=== PATIENT | female | born 1965 | race Caucasian/White ===

== ENCOUNTER 2020-12-02 09:41 | Outpatient (REF) | payer MEDICARE, MEDICAID, SELFPAY ==
--- NOTE | ~2020-12-02 | MR_ITS ---
EXAMINATION: MR ABDOMEN WITHOUT AND WITH CONTRAST CLINICAL INFORMATION: Followup left adrenal lesion. COMPARISON: Previous CT scans of the abdomen and pelvis most recent November 2019 going back to October 2017 TECHNIQUE: MR abdomen was performed without and with use of 8.5 mL intravenous Gadavist gadolinium contrast. Postcontrast images are performed in multiphase dynamic sequences. Imaging was performed in 3 planes. FINDINGS: LUNG BASES: The visualized lung bases are unremarkable. LIVER, GALLBLADDER, AND BILIARY TREE: The liver is normal in size, smooth in contour, and normal in signal. No focal hepatic lesion or biliary ductal dilatation is present. The gallbladder is unremarkable with no evidence of gallbladder wall thickening, or obvious pericholecystic inflammatory changes. PANCREAS: Unremarkable. SPLEEN: Normal. ADRENAL GLANDS: There is a 1 x 1.5 cm lesion in the left adrenal gland. This is low signal on T1- and T2-weighted sequences and does not demonstrate evidence of enhancement. It loses signal on [id number] sequences and fat saturation sequences suggestive of a fatty lesion. Demonstrates mild enhancement. This is similar to previous exams going back to October 2017 and likely represents a benign lipid-rich adenoma. The right adrenal gland is normal-appearing. KIDNEYS AND URETERS: The kidneys are normal in size, shape, and enhance symmetrically. No hydronephrosis. No perinephric stranding. GASTROINTESTINAL TRACT: No bowel obstruction. No ascites or fluid collection. ABDOMINAL WALL: No significant hernia is appreciated. LYMPH NODES: No lymphadenopathy. VASCULAR: There is evidence of atherosclerotic disease. No aneurysm is seen. OSSEOUS STRUCTURES: Marrow signal normal. There are degenerative changes of the spine. MR/MR abdomen wo/w con IMPRESSION: Stable 1 x 1.5 cm fat-containing left adrenal lesion probably representing a benign adenoma.
[2020-12-02 10:33] LABS: Anion Gap 11 (12-20); Blood Urea Nitrogen 17 mg/dL (9-16); Calcium 9.4 mg/dL (8.4-10.2); Carbon Dioxide 30 mmol/L (22-29); Chloride 106 mmol/L (96-108); Estimated Glomerular Filt Rate > 60; Glucose Random 120 mg/dL (60-115); Potassium 4.9 mmol/L (3.3-5.1); Sodium 142 mmol/L (135-145)
[2020-12-03 18:37] LABS: Adrenocorticotropic Hormone 7 pg/mL (6-50)
[2020-12-05 14:36] LABS: Catecholamine Frac, Total 667 pg/mL
[2020-12-06 10:41] LABS: Metanephrine, Free 36 pg/mL (<=57); Normetanephrines, Free 109 pg/mL (<=148); Total Metanephrine, Free 145 pg/mL (<=205)
[2020-12-07 15:20] LABS: Renin 0.97 ng/mL/h (0.25-5.82)
== END 2020-12-02 09:42 | disposition home or self-care (01) ==
LOC: HO.MRI 09:41
PROVIDERS: PCP Nurse Practitioner Primary Care; Visit Provider Internal Medicine
DX: E27.9 Disorder of adrenal gland, unspecified (principal)
CPT/HCPCS: 36415; 74183; 80048; 82024; 82088; 82384; 83835; 84244; A9585

== ENCOUNTER → 2021-01-06 07:55 | Outpatient (BNVA) | payer MEDICARE, MEDICAID, SELFPAY | PROVIDERS: PCP Nurse Practitioner Primary Care; Visit Provider Internal Medicine | CPT/HCPCS: Q3014 ==

== ENCOUNTER 2021-01-31 08:23 | Outpatient (REF) | payer MEDICARE, MEDICAID, SELFPAY ==
[2021-02-04 08:21] LABS: Adrenocorticotropic Hormone <5 pg/mL (6-50)
[2021-02-05 10:36] LABS: Dexamethasone 234 ng/dL
== END 2021-01-31 08:24 | disposition home or self-care (01) ==
LOC: HO.LAB 08:23
PROVIDERS: PCP Nurse Practitioner Primary Care; Visit Provider Internal Medicine
DX: D35.02 Benign neoplasm of left adrenal gland (principal)
CPT/HCPCS: 36415; 80299; 82024; 82533

== ENCOUNTER 2021-12-31 13:08 | Outpatient (REF) | payer OTHER, SELFPAY ==
--- NOTE | ~2021-12-31 | MR_ITS ---
EXAMINATION: MR ABDOMEN WITHOUT AND WITH CONTRAST CLINICAL INFORMATION: Benign neoplasm of the left adrenal gland. COMPARISON: 12/02/2020 TECHNIQUE: MR abdomen was performed without and with use of 8 mL intravenous Gadavist gadolinium contrast. Postcontrast images are performed in multiphase dynamic sequences. Imaging was performed in 3 planes. FINDINGS: LUNG BASES: The visualized lung bases are unremarkable. LIVER, GALLBLADDER, AND BILIARY TREE: The liver is normal in size, smooth in contour, and normal in signal. No focal hepatic lesion or biliary ductal dilatation is present. The gallbladder is unremarkable with no evidence of gallbladder wall thickening, or obvious pericholecystic inflammatory changes. PANCREAS: Unremarkable. SPLEEN: Normal. ADRENAL GLANDS: Normal appearing right adrenal gland. Redemonstration of the left adrenal gland nodule measuring 1.3 x 1.1 cm. This is low in signal on T2-weighted imaging. This is isointense on T1-weighted imaging without significant enhancement. There is signal dropout on out of phase imaging, consistent with a lipid rich adenoma. No significant change from prior. KIDNEYS AND URETERS: The kidneys are normal in size, shape, and enhance symmetrically. No hydronephrosis. No perinephric stranding. GASTROINTESTINAL TRACT: No bowel obstruction. No ascites or fluid collection. ABDOMINAL WALL: No significant hernia is appreciated. LYMPH NODES: No lymphadenopathy. VASCULAR: Unremarkable. OSSEOUS STRUCTURES: Marrow signal normal. MR/MR abdomen wo/w con IMPRESSION: No significant change in appearance of the left adrenal gland nodule which has signal characteristics consistent with a lipid rich adenoma. No specific follow-up recommended.
== END 2021-12-31 13:09 | disposition home or self-care (01) ==
LOC: HO.MRI 13:08
PROVIDERS: PCP Physician Assistant; Visit Provider Internal Medicine
DX: D35.02 Benign neoplasm of left adrenal gland (principal)
CPT/HCPCS: 74183; A9585

== ENCOUNTER 2022-01-09 08:35 | Outpatient (REF) | payer OTHER, SELFPAY ==
[2022-01-09 09:58] LABS: Anion Gap 15 (12-20); Blood Urea Nitrogen 17 mg/dL (9-16); Calcium 9.2 mg/dL (8.4-10.2); Carbon Dioxide 25 mmol/L (22-29); Chloride 104 mmol/L (96-108); Estimated Glomerular Filt Rate > 60; Glucose Random 110 mg/dL (60-115); Potassium 4.5 mmol/L (3.3-5.1); Sodium 139 mmol/L (135-145)
[2022-01-09 11:00] LABS: Cortisol Random < 1.0 ug/dL
[2022-01-11 06:46] LABS: DHEA Sulfate 5 mcg/dL (5-167)
[2022-01-13 18:03] LABS: Adrenocorticotropic Hormone 6 pg/mL (6-50)
[2022-01-14 16:11] LABS: Metanephrine, Free <25 pg/mL (<=57); Normetanephrines, Free 100 pg/mL (<=148); Total Metanephrine, Free 100 pg/mL (<=205)
[2022-01-15 14:02] LABS: Dexamethasone 308 ng/dL
[2022-01-15 15:16] LABS: Renin 0.59 ng/mL/h (0.25-5.82)
[2022-01-16 13:02] LABS: Catecholamine Frac, Total 547 pg/mL
== END 2022-01-09 08:36 | disposition home or self-care (01) ==
LOC: HO.LAB 08:35
PROVIDERS: Visit Provider Internal Medicine
DX: D35.02 Benign neoplasm of left adrenal gland (principal)
CPT/HCPCS: 36415; 80048; 80299; 82024; 82088; 82384; 82533; 82627; 83498; 83835; 84244

== ENCOUNTER 2022-10-16 10:56 | Outpatient (REF) | payer OTHER, SELFPAY ==
[2022-10-16 12:36] LABS: Anion Gap 9 (12-20); Blood Urea Nitrogen 14 mg/dL (9-16); Calcium 9.3 mg/dL (8.4-10.2); Carbon Dioxide 28 mmol/L (22-29); Chloride 108 mmol/L (96-108); Estimated Glomerular Filt Rate > 60; Glucose Random 106 mg/dL (60-115); Potassium 4.4 mmol/L (3.3-5.1); Sodium 141 mmol/L (135-145)
[2022-10-16 13:03] LABS: Cortisol Random 8.3 ug/dL
[2022-10-17 20:23] LABS: DHEA Sulfate 16 mcg/dL (5-167)
[2022-10-23 12:54] LABS: Metanephrine, Free 33 pg/mL (<=57); Normetanephrines, Free 90 pg/mL (<=148); Total Metanephrine, Free 123 pg/mL (<=205)
[2022-10-27 13:53] LABS: Catecholamine Frac, Total 431 pg/mL
[2022-10-31 15:53] LABS: Renin 0.33 ng/mL/h (0.25-5.82)
== END 2022-10-16 10:57 | disposition home or self-care (01) ==
LOC: HO.LAB 10:56
PROVIDERS: PCP Physician Assistant; Visit Provider Internal Medicine
DX: D35.02 Benign neoplasm of left adrenal gland (principal)
CPT/HCPCS: 36415; 80048; 82024; 82088; 82384; 82533; 82627; 83835; 84244

== ENCOUNTER → 2022-10-23 10:53 | Outpatient (BNVA) | payer OTHER, SELFPAY | PROVIDERS: PCP Physician Assistant; Visit Provider Internal Medicine | DX: D35.02 Benign neoplasm of left adrenal gland (principal) | CPT/HCPCS: 99212 ==

== ENCOUNTER 2023-10-28 08:07 | Outpatient (REF) | payer OTHER, SELFPAY ==
[2023-10-28 09:43] LABS: Anion Gap 12 (12-20); Blood Urea Nitrogen 22 mg/dL (9-16); Calcium 9.5 mg/dL (8.4-10.2); Carbon Dioxide 23 mmol/L (22-29); Chloride 110 mmol/L (96-108); Estimated Glomerular Filt Rate > 60; Glucose Random 103 mg/dL (60-115); Potassium 4.9 mmol/L (3.3-5.1); Sodium 140 mmol/L (135-145)
[2023-10-29 10:33] LABS: DHEA Sulfate 16 mcg/dL (5-167)
[2023-11-01 03:38] LABS: Adrenocorticotropic Hormone 5 pg/mL (6-50)
[2023-11-03 17:42] LABS: Renin 1.51 ng/mL/h (0.25-5.82)
[2023-11-04 15:29] LABS: Metanephrine, Free <25 pg/mL (<=57); Normetanephrines, Free 100 pg/mL (<=148); Total Metanephrine, Free 100 pg/mL (<=205)
[2023-11-11 22:24] LABS: Catecholamine Frac, Total 500 pg/mL
== END 2023-10-28 08:08 | disposition home or self-care (01) ==
LOC: HO.LAB 08:07
PROVIDERS: Absent Provider Internal Medicine Endocrinology, Diabetes & Metabolism; PCP Physician Assistant; Visit Provider Internal Medicine
DX: D35.02 Benign neoplasm of left adrenal gland (principal)
CPT/HCPCS: 36415; 80048; 82024; 82088; 82384; 82533; 82627; 83835; 84244

== ENCOUNTER 2023-11-03 11:33 | Outpatient (AMB) | payer OTHER, SELFPAY ==
--- NOTE | 2023-11-03 11:37 | A.OFFVIS_ITS ---
Vital Signs 11/03/23 11:38 Height 5 ft 4.5 in Weight 173 lb 4.533 oz BMI 29.3 BP 90/62 Blood Pressure Location Lt brachial Position Sitting Pulse 82 Pulse Source Pulse Oximeter Intake Visit Reasons: adrenal adenoma-confirmed Intake Note: Patient presents today for Adrenal Adenoma, last seen by Dr. Juarez on 10/23/2022. Community Engagement Leader Required: No Accompanied by: Self / Same As Patient Allergies acetaminophen [From TYLENOL] Allergy (Unknown, Verified 11/03/23 11:39) UPSET STOMACH baclofen [BACLOFEN] Allergy (Unknown, Verified 11/03/23 11:39) UNKNOWN cortisone [CORTISONE] Allergy (Unknown, Verified 11/03/23 11:39) UNKNOWN ibuprofen Allergy (Unknown, Verified 11/03/23 11:39) Unknown meloxicam Allergy (Unknown, Verified 11/03/23 11:39) Unknown Sulfa (Sulfonamide Antibiotics) [SULFA (SULFONAMIDE ANTIBIOTICS)] Allergy (Unknown, Verified 11/03/23 11:39) RASH,SWELLING sulfamethoxazole [From BACTRIM] Allergy (Unknown, Verified 11/03/23 11:39) RASH/SWELLING trimethoprim [From BACTRIM] Allergy (Unknown, Verified 11/03/23 11:39) RASH/SWELLING Bactrim Allergy (Unknown, Uncoded 11/03/23 11:39) Unknown bee sting Allergy (Unknown, Uncoded 11/03/23 11:39) Unknown Cortisone Allergy (Unknown, Uncoded 11/03/23 11:39) Unknown HPI Comments Details: 58 YO Female with PMHx anxiety/depression who is seen today in F/U for adrenal incidentaloma. The patient last saw Dr. Juarez on 10/23/2022 ?She has multiple medical complaints for which she sees multiple prov iders. She does have a history of abdominal pain with diarrhea and has been seeing GI. During her evaluation a CT abdomen pelvis was ordered. ?She underwent CT of the abdomen/pelvis 10/13/17 which revealed a L sided low attentuation mass within the L adrenal measuring 1.4 cm. She was subsequently referred to Endocrinology. ?She initially had a full biochemical panel completed which revealed no evidence of Pheochromocytoma or Rose's disease, with a negative dexamethasone suppression test, and serum and 24 hour urine catecholamines and metanephrines WNL. She has continued with yearly F/U. ?Her repeat CT scan now reveals a mass measuring 2 cm. It is unclear if this has grown from prior as only 1 dimension was reported on her previous CT adrenals. She did undergo biochemical workup which revealed no evidence of pheochromocytoma, and DSST was completely WNL. She did incorrectly complete a DSST with a low dexamethasone level, but on repeat Dex level was appropriate and Cortisol suppressed appropriately. ?She does report hirsutism and deep voice, but this has been present for many years. Androgen levels have remained WNL. ?Does complain of lower extremity edema, and fatigue. I advised her to discuss this with her PCP as it can indicate a cardiac condition. She will be calling them this morning. ?She does have reynauds and also autoimmune arthritis. Denies ever using any steroids in the past, and currently is not using any steroids. ?Denies any history of kidney stones. No family history of kidney stones, thyroid cancer or gastric stromal tumors. ?MRI Abdomen: 12/31/2022 FINDINGS: LUNG BASES: The visualized lung bases are unremarkable.? LIVER, GALLBLADDER, AND BILIARY TREE: The liver is normal in size, smooth in contour, and normal in signal. No focal hepatic lesion or biliary ductal dilatation is present. The gallbladder is unremarkable with no evidence of gallbladder wall thickening, or obvious pericholecystic inflammatory changes.? PANCREAS: Unremarkable.? SPLEEN: Normal.? ADRENAL GLANDS: Normal appearing right adrenal gland. Redemonstration of the left adrenal gland nodule measuring 1.3 x 1.1 cm. This is low in signal on T2-weighted imaging. This is isointense on T1-weighted imaging without significant enhancement. There is signal dropout on out of phase imaging, consistent with a lipid rich adenoma. No significant change from prior. KIDNEYS AND URETERS: The kidneys are normal in size, shape, and enhance symmetrically.? No hydronephrosis.? No perinephric stranding. ? GASTROINTESTINAL TRACT: No bowel obstruction.? No ascites or fluid collection. ? ABDOMINAL WALL: No significant hernia is appreciated.? LYMPH NODES: No lymphadenopathy. VASCULAR: Unremarkable. OSSEOUS STRUCTURES: Marrow signal normal. ? MR/MR abdomen wo/w con IMPRESSION: No significant change in appearance of the left adrenal gland nodule which has signal characteristics consistent with a lipid rich adenoma. No specific follow-up recommended.? Labs: Laboratory Tests 10/16/22 10/16/22 10/16/22 11:20 11:20 11:20 Sodium 141 Potassium 4.4 Creatinine 0.64 Estimated GFR > 60 Calcium 9.3 Aldosterone 2 DHEA Sulfate 16 Random Cortisol 8.3 previous workup was negative for secretion and lesion was determined to be low- density characteristics of adenoma . No sx of pheo or Rose's PFSH Medical History Adrenal cortical adenoma of left adrenal gland Vitamin D deficiency Surgical History History of surgery Hx of colonoscopy Family History Father Arthritis Raynauds disease Mother Arthritis Social History Patient Tobacco Use Status: Current everyday Tobacco user Physical Exam Vital Signs: BMI result Body Mass Index 29.3 Assessment & Plan Assessment & Plan (1) Adrenal cortical adenoma of left adrenal gland: Code(s): D35.02 - Benign neoplasm of left adrenal gland Category: Medical Plan: This is a 58-year-old white female with a history of left adrenal adenoma with low-density characteristics suggestive of a benign adenoma. Previous workup was negative for hypersecretion of adrenal hormones. Plasma metanephrines and nor metanephrines are pending. Assuming above workup is negative will continue to follow annual basis Coding Level of Care Code Est Pt Level 3 (45494) Diagnoses Adrenal cortical adenoma of left adrenal gland D35.02
[2023-11-03 11:38] VITALS: BP 90/62; PULSE 82; BMI 29.3
== END 2023-11-03 11:59 | disposition home or self-care (01) ==
PROVIDERS: PCP Physician Assistant; Visit Provider Internal Medicine Endocrinology, Diabetes & Metabolism
DX: D35.02 Benign neoplasm of left adrenal gland (principal)
CPT/HCPCS: 99213

== ENCOUNTER → 2023-11-03 11:33 | Outpatient (BNVA) | payer OTHER, SELFPAY | PROVIDERS: PCP Physician Assistant; Visit Provider Internal Medicine Endocrinology, Diabetes & Metabolism | DX: D35.02 Benign neoplasm of left adrenal gland (principal) | CPT/HCPCS: 99212 ==

== ENCOUNTER 2024-11-13 09:22 | Outpatient (REF) | payer OTHER, SELFPAY ==
--- OUTSIDE RECORDS SUMMARY | 2024-11-13 09:55 | XMS_ITS | Encounter Summary ---
Author Organization [facility] Address [address] [place] [address] Care Team Providers Care Project Manager Finance Name Role Phone Unavailable Primary Care Provider Unavailabl e Encounter Details Date Type Department Care Team (Latest Contact Info) Description 09/12/2021 Abstract [facility] CONVERSIONS Dental, Provider, DDS Social History Tobacco Use Types Packs/Day Years Used Date Smoking Tobacco: Never Assessed Comments Unknown Sex and Gender Information Value Date Recorded Sex Assigned at Not on file Legal Sex Female 5:35 PM EDT Gender Identity Not on file Sexual Orientation Not on file documented as of this encounter Plan of Treatment Not on file documented as of this encounter Visit Diagnoses Not on filedocumented in this encounter
== END 2024-11-13 09:23 | disposition home or self-care (01) ==
LOC: HO.LAB 09:22
PROVIDERS: Visit Provider Internal Medicine Endocrinology, Diabetes & Metabolism
DX: D35.02 Benign neoplasm of left adrenal gland (principal)
CPT/HCPCS: 36415; 82533

== ENCOUNTER 2024-12-20 09:22 | Outpatient (AMB) | payer OTHER, SELFPAY ==
--- NOTE | 2024-12-20 09:24 | A.OFFVIS_ITS ---
Vital Signs 12/20/24 09:25 Height 5 ft 4.5 in Weight 174 lb 2.643 oz BMI 29.4 BP 112/68 Blood Pressure Location Rt brachial Position Sitting Pulse 80 Pulse Source Pulse Oximeter Pulse Oximetry (%) 96 Oxygen Delivery Method Room Air Intake Visit Reasons: f/u adrenal adenoma Intake Note: Patient presents today for annual Adrenal Adenoma follow up. Crew Leader/Control Room Operator Required: No Accompanied by: Daughter Allergies acetaminophen (From TYLENOL) Allergy (Unknown, Verified 12/20/24 09:26) UPSET STOMACH baclofen (BACLOFEN) Allergy (Unknown, Verified 12/20/24 09:26) UNKNOWN cortisone (CORTISONE) Allergy (Unknown, Verified 12/20/24 09:26) UNKNOWN ibuprofen Allergy (Unknown, Verified 12/20/24 09:26) Unknown meloxicam Allergy (Unknown, Verified 12/20/24 09:26) Unknown Sulfa (Sulfonamide Antibiotics) (SULFA (SULFONAMIDE ANTIBIOTICS)) Allergy (Unknown, Verified 12/20/24 09:26) RASH,SWELLING sulfamethoxazole (From BACTRIM) Allergy (Unknown, Verified 12/20/24 09:26) RASH/SWELLING trimethoprim (From BACTRIM) Allergy (Unknown, Verified 12/20/24 09:26) RASH/SWELLING Bactrim Allergy (Unknown, Uncoded 12/20/24 09:26) Unknown bee sting Allergy (Unknown, Uncoded 12/20/24 09:26) Unknown Cortisone Allergy (Unknown, Uncoded 12/20/24 09:26) Unknown Medication List - Last Reconciled 12/20/24 by Carlos Leiva MD albuterol sulfate 90 mcg/actuation (Ventolin HFA) 0 mcg inhalation ascorbic acid (vitamin C) 500 mg PO DAILY aspirin 81 mg PO DAILY bisacodyl (Dulcolax (bisacodyl)) 10 mg PO BEDTIME budesonide-formoterol 160-4.5 mcg/actuation (Symbicort) 2 puffs inhalation BID cholecalciferol (vitamin D3) 50 mcg PO DAILY dexamethasone 1 mg PO ONCE dextroamphetamine-amphetamine 30 mg 1 tab PO TID duloxetine 60 mg PO DAILY fluticasone propionate 50 mcg/actuation sprays intranasal hydroxyzine pamoate 50 mg PO BID PRN qhkiip-zknoesjs-gqanuxa 24,000-76,000 -120,000 unit (Creon) 2 caps PO QID lubiprostone (Amitiza) 8 mcg PO BID montelukast 10 mg PO DAILY oxycodone mg PO simethicone (Gas Relief (simethicone)) 180 mg PO . q.i.d. PRN HPI Comments Details: 59 YO Female with PMHx anxiety/depression who is seen today in F/U for adrenal incidentaloma. ?She has multiple medical complaints for which she sees multiple providers. She does have a history of abdominal pain with diarrhea and has been seeing GI. During her evaluation a CT abdomen pelvis was ordered. ?She underwent CT of the abdomen/pelvis 10/13/17 which revealed a L sided low attentuation mass within the L adrenal measuring 1.4 cm. She was subsequently referred to Endocrinology. ?She initially had a full biochemical panel completed which revealed no evidence of Pheochromocytoma or Rose's disease, with a negative dexamethasone suppression test, and serum and 24 hour urine catecholamines and metanephrines WNL. She has continued with yearly F/U. ?Her repeat CT scan now reveals a mass measuring 2 cm. It is unclear if this has grown from prior as only 1 dimension was reported on her previous CT adrenals. She did undergo biochemical workup which revealed no evidence of pheochromocytoma, and DSST was completely WNL. She did incorrectly complete a DSST with a low dexamethasone level, but on repeat Dex level was appropriate and Cortisol suppressed appropriately. ?She does report hirsutism and deep voice, but this has been present for many years. Androgen levels have remained WNL. ?Does complain of lower extremity edema, and fatigue. I advised her to discuss this with her PCP as it can indicate a cardiac condition. She will be c alling them this morning. ?She does have reynauds and also autoimmune arthritis. Denies ever using any steroids in the past, and currently is not using any steroids. ?Denies any history of kidney stones. No family history of kidney stones, thyroid cancer or gastric stromal tumors. ?MRI Abdomen: 12/31/2022 FINDINGS: LUNG BASES: The visualized lung bases are unremarkable.? LIVER, GALLBLADDER, AND BILIARY TREE: The liver is normal in size, smooth in contour, and normal in signal. No focal hepatic lesion or biliary ductal dilatation is present. The gallbladder is unremarkable with no evidence of gallbladder wall thickening, or obvious pericholecystic inflammatory changes.? PANCREAS: Unremarkable.? SPLEEN: Normal.? ADRENAL GLANDS: Normal appearing right adrenal gland. Redemonstration of the left adrenal gland nodule measuring 1.3 x 1.1 cm. This is low in signal on T2-weighted imaging. This is isointense on T1-weighted imaging without significant enhancement. There is signal dropout on out of phase imaging, consistent with a lipid rich adenoma. No significant change from prior. KIDNEYS AND URETERS: The kidneys are normal in size, shape, and enhance symmetrically.? No hydronephrosis.? No perinephric stranding. ? GASTROINTESTINAL TRACT: No bowel obstruction.? No ascites or fluid collection. ? ABDOMINAL WALL: No significant hernia is appreciated.? LYMPH NODES: No lymphadenopathy. VASCULAR: Unremarkable. OSSEOUS STRUCTURES: Marrow signal normal. ? MR/MR abdomen wo/w con IMPRESSION: No significant change in appearance of the left adrenal gland nodule which has signal characteristics consistent with a lipid rich adenoma. No specific follow-up recommended.? Labs: Laboratory Tests 10/16/22 10/16/22 10/16/22 11:20 11:20 11:20 Sodium 141 Potassium 4.4 Creatinine 0.64 Estimated GFR > 60 Calcium 9.3 Aldosterone 2 DHEA Sulfate 16 Random Cortisol 8.3 previous workup was negative for secretion and lesion was determined to be low- density characteristics of adenoma . No sx of pheo or Rose's . Recent dexamethasone suppression test was normal The patient is a 59-year-old female presenting with evaluation of adrenal incidentaloma and associated symptoms. The adrenal incidentaloma was first evaluated in 2021, identified as a small growth on imaging, and appeared benign. The patient has been advised that repeated tesi s not necessary unless symptoms suggestive of pheochromocytoma, such as palpitations, sweating, or hypertension, occur. The patient reports a recent episode of syncope, which occurred while attempting to use the bathroom, resulting in her waking up on the floor soaked. She attributes this to stress and exhaustion, and no further episodes have occurred since. The possibility of vasovagal syncope was discussed, and the patient was advised to seek medical attention if it recurs. The patient has a history of recurrent bladder and kidney infections, which she manages with increased fluid intake, particularly cranberry juice. She reports that these infections have been a longstanding issue since childhood. [facility] Medical History Adrenal cortical adenoma of left adrenal gland Vitamin D deficiency Surgical History History of surgery Hx of colonoscopy Family History Father Arthritis Raynauds disease Mother Arthritis Social History Patient Tobacco Use Status: Current everyday Tobacco user Physical Exam Vital Signs: Last Vital Signs Pulse 80 12/20/24 09:25 BP 112/68 12/20/24 09:25 Pulse Ox 96 12/20/24 09:25 Oxygen Delivery Method Room Air 12/20/24 09:25 BMI result Body Mass Index 29.4 Assessment & Plan Assessment & Plan (1) Adrenal cortical adenoma of left adrenal gland: Code(s): D35.02 - Benign neoplasm of left adrenal gland Category: Medical Plan: This is a 59-year-old white female with a history of left adrenal adenoma with low-density characteristics suggestive of a benign adenoma. Previous workup was negative for hypersecretion of adrenal hormones. Plasma metanephrines and normetanephrines are pending. Recent dexamethasone suppression test was normal Will continue to follow annual basis 1. Adrenal incidentaloma The lesion was initially identified as benign, and current guidelines suggest no further imaging unless symptoms indicative of pheochromocytoma develop. The patient should monitor for symptoms such as palpitations, sweating, or hypertension and report any changes to her primary care provider. 2. Vasovagal syncope The patient experienced a single episode of syncope, likely related to stress and exhaustion. She was advised to seek medical attention if further episodes occur and to discuss this with her primary care provider. 3. Recurrent bladder and kidney infections The patient manages these with increased fluid intake, particularly cranberry juice. She should continue monitoring symptoms and consult her primary care provider if infections persist or worsen. During the consultation, I discussed with the patient the benign nature of her adrenal incidentaloma and the lack of necessity for further imaging unless specific symptoms arise. We reviewed the symptoms indicative of pheochromocytoma and emphasized the importance of monitoring for these signs. I also addressed her recent syncope episode, suggesting it may be vasovagal in nature, and advised her to seek medical attention if it recurs. Additionally, we discussed her history of recurrent bladder and kidney infections and the importance of continued management and monitoring. - Monitor for symptoms such as palpitations, sweating, or high blood pressure and report any changes to your primary care provider. - Seek medical attention if you experience another episode of passing out. - The patient had an opportunity to ask questions regarding treatment plan. The patient expressed understanding and agreement with the above treatment plan. Patient was informed and verbally consented to the use of an ambient scribe for clinic note documentation during this visit. Orders: Orders Cortisol Random 1 Year D35.02 - Benign neoplasm of left adrenal gland Medications: Refilled dexamethasone 1 mg PO ONCE 1 tab 0RF Coding Level of Care Code Est Pt Level 3 (37636) Diagnoses Adrenal cortical adenoma of left adrenal gland D35.02
[2024-12-20 09:25] VITALS: BP 112/68; PULSE 80; O2SAT 96; BMI 29.4
--- OUTSIDE RECORDS SUMMARY | 2024-12-20 09:47 | XMS_ITS | Encounter Summary ---
Author Organization [facility] Address [address] [place] [address] Care Team Providers Care Sewer Maintenance Supervisor Name Role Phone Unavailable Primary Care Provider [...]
--- OUTSIDE RECORDS SUMMARY | 2024-12-20 09:47 | XMS_ITS | Encounter Summary ---
Author Organization [facility] Address [address] [place] [id number] Phone Care Team Providers Care Thermostatic Controls Supervisor Name Role Phone Jose Ramírez Alona [place] Primary Care Provider Cecil Romero MD Unavailable [phone] Tiffanie Felix MD Unavailable [phone] Pcp, Unknown Primary Care Provider Unavailabl Gina Camarena Primary Care Provider [phone] Encounter Details Date Type Department Care Team (Late st Contact Info) Description 04/24/2020 Ancillary Orders [facility],Outside Imaging [address] [place] [address] System, Provider Not In, PhD [address] [address] Social History Tobacco Use Types Packs/Day Years Used Date Smoking Tobacco: Every Day Cigarettes 0.5 20 Smokeless Tobacco: Never Alcohol Use Standard Drinks/Week Comments Not Currently 0 (1 standard drink = 0.6 oz pur e alcohol) Comments No Sex and Gender Information Value Date Recorded Sex Assigned at Female 04/16/2019 12:09 AM EST Legal Sex Female 9:38 PM EDT Gender Identity Female 04/16/2019 12:09 AM EST Sexual Orientation Straight 04/16/2019 12 :09 AM EST 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 Not on file Not on file documented as of this encounter Plan of Treatment Not on file documented as of this encounter Visit Diagnoses Not on filedocumented in this encounter Additional Health Concerns Infection Onset Date Last Indicated Resolved Time CoV-Exposed Comment:Recent close contact 05/09/2020 05/09/2020 05/23/2020 1:25 AM EST documented as of this encounter Care Teams Thermostatic Controls Supervisor Relationship Specialty Start Date End Date Jose Ramírez AlonaMARISA [address] [place] [address], [address] [place] [address] PCP - General 03/24/17 08/21/21 Pcp, Unknown PCP - General 08/22/21 12/22/23 Gina Rodriguez PA [address] [place] [id number] [email or web address] PCP - General Physician Speeder Frame Tender 12/23/23 Cecil Romero MD [address] [place] [address], [address] [place] [address] Family Medicine 04/08/17 Tiffanie Felix MD [address] [place] [address], [address] [place] [address] [email or web address] Insurance Assigned Provider 08/16/21 10/18/21 documented as of this encounter Additional Source Comments The information contained in this document represents components of the legal health record. It is not the complete legal health record.[facility]
== END 2024-12-20 10:04 | disposition home or self-care (01) ==
LOC: HO.ENCR 09:23
PROVIDERS: PCP Physician Assistant; Visit Provider Internal Medicine Endocrinology, Diabetes & Metabolism
DX: D35.02 Benign neoplasm of left adrenal gland (principal)
CPT/HCPCS: 99213

== ENCOUNTER → 2024-12-20 09:22 | Outpatient (BNVA) | payer OTHER, SELFPAY | PROVIDERS: PCP Physician Assistant; Visit Provider Internal Medicine Endocrinology, Diabetes & Metabolism | DX: D35.02 Benign neoplasm of left adrenal gland (principal) | CPT/HCPCS: 99212 ==